=== PATIENT | male | born 1995 | race Caucasian/White ===

== ENCOUNTER 2017-05-03 15:30 | Emergency (ER) | payer BC, OTHER ==
[2017-05-03] MEDS ORDERED: RX INFO: IV CONTRAST WAS GIVEN 1 EACH MISC MISCELLANE PRN (15:41)
[2017-05-03 15:49] LABS: Basophils % (A) 1 %; CH 33.1; Eosinophils # (A) 0.1 k/uL (0-0.7); Eosinophils % (A) 1 %; HCT 48.4 % (39.0-53.0); HDW 2.62; HGB 16.2 gm/dL (13.0-17.5); Luc # (Auto) 0.11; Luc % (Auto) 1; Lymphocytes # (A) 1.6 k/uL (1.0-4.8); Lymphocytes % (A) 18 %; MCH 31.8 pg (25.0-35.0); MCHC 33.5 g/dL (31.0-37.0); Mean Platelet Volume 7.7; Monocytes # (A) 0.5 k/uL (0-1.0); Monocytes % (A) 6 %; Neutrophils # (A) 6.6 k/uL (1.3-7.7); Neutrophils % (A) 73 %; RDW 13.5 % (11.5-15.5); WBC (Perox) 8.64
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
[2017-05-03 15:55] VITALS: RESP 18
[2017-05-03 15:59] LABS: Partial Thromboplastin Time 22.4 sec (22.0-30.0); Prothrombin Time 10.5 sec (9.0-12.0)
[2017-05-03 16:00] LABS: ALT 73 U/L (21-72); AST 52 U/L (17-59); Alcohol <10 mg/dL; Alkaline Phosphatase 66 U/L (38-126); Amylase 70 U/L (30-110); Anion Gap 14 mmol/L; Blood Urea Nitrogen 14 mg/dL (9-20); Calcium 9.8 mg/dL (8.4-10.2); Carbon Dioxide 21 mmol/L (22-30); Chloride 107 mmol/L (98-107); Glucose 95 mg/dL (74-99); Non-African American GFR(MDRD) >60 (>60 ml/min/1.73 sqM); Potassium 4.5 mmol/L (3.5-5.1); Sodium 142 mmol/L (137-145); Total Bilirubin 0.7 mg/dL (0.2-1.3)
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
[2017-05-03 16:09] LABS: Creatine Kinase 126 U/L (55-170)
[2017-05-03 16:22] LABS: Creatine Kinase MB 0.5 ng/mL (0.0-2.4); Troponin I <0.012 ng/mL (0.000-0.034)
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
[2017-05-03 17:30] VITALS: BP 147/82; PULSE 90; TEMP 97.8
[2017-05-06 07:06] LABS: Glucose,Whole Blood 108 mg/dL (75-99)
== END 2017-05-03 18:01 | disposition home or self-care (01) ==
LOC: EC 15:30
DX: T14.8 Other injury of unspecified body region (principal); S50.312A Abrasion of left elbow, initial encounter; S50.311A Abrasion of right elbow, initial encounter; S20.412A Abrasion of left back wall of thorax, initial encounter; R07.89 Other chest pain; R10.10 Upper abdominal pain, unspecified; V59.59XA Passenger in pick-up truck or van injured in collision with other motor vehicles in traffic accident, initial encounter
CPT/HCPCS: 36415; 93005; 86900; 86901; 80053; 82150; 82550; 82553; 83605; 83690; 84484; 85025; 85610; 85730; 86850; 80320; 71010; 72170; 72125; 70450; 71260; 74177; 99284; Q9967